=== PATIENT | female | born 1950 | race Caucasian/White ===

== ENCOUNTER 2020-02-29 19:04 | Emergency (ER) | payer MEDICARE, OTHER ==
[2020-02-29 19:14] VITALS: Ht 152.4 cm
[2020-02-29 22:34] VITALS: BP 152/52
== END 2020-02-29 22:35 | disposition home or self-care (01) ==
LOC: ED 19:04
DX: M25.561 Pain in right knee (principal); I10 Essential (primary) hypertension; I12.9 Hypertensive chronic kidney disease with stage 1 through stage 4 chronic kidney disease, or unspecified chronic kidney disease; N18.9 Chronic kidney disease, unspecified; Z89.611 Acquired absence of right leg above knee
CPT/HCPCS: J2270; J2405; J3490; Q0162